=== PATIENT | male | born 1965 | race Caucasian/White ===

== ENCOUNTER 2017-05-10 08:09 | Day surgery (SDC) | payer MEDICARE, OTHER ==
[2017-05-10] VITALS (10 sets, daily range): BP systolic 96–124; BP diastolic 62–87
[~2017-05-10] VITALS: Ht 172.7 cm; Wt 81.6 kg
[~2017-05-10 08:09] MED LIST: ABILIFY10 MG ORAL; ACYCLOVIR400 MG ORAL; AMARYL1 MG ORAL; BYSTOLIC2.5 MG ORAL; Bacitracin 50000 Units Vial ONE; Bacitracin Oint 15gm Tube TOPIC ONE; METFORMIN HCL1000 M1 ORAL; NEXIUM40 MG ORAL; SIMVASTATIN20 MG ORAL; Surgicel 4in x 8in TOPIC ONE; TEMAZEPAM30 MG ORAL; TRILIPIX135 MG PO; VASCEPA1 GM PO; Vancomycin 1gm inj IVPB ONE; WELLBUTRIN XL150 MG ORAL; ZOCOR20 M1 ORAL
[2017-05-10] MEDS ORDERED: Vancomycin 1 GM in D5W 275 ML IVPB ONE (08:15)
--- NOTE | 2017-05-10 10:00 | Pre-Procedure Note/Attestation ---
Pre-Procedure Note/Attestation Complete Prior to Procedure Planned Procedure: not applicable Procedure Narrative: Removal and replacement of penile prosthesis Indications for Procedure Pre-Operative Diagnosis: ED Attestation I attest that I discussed the nature of the procedure; its benefits; risks and complications; and alternatives (and the risks and benefits of such alternatives ), prior to the procedure, with the patient (or the patient's legal goodwill representative). I attest that, if there was a reasonable possibility of needing a blood transfusion, the patient (or the patient's legal goodwill representative) was given the [facility] standardized written summary, pursuant to the Compa Stoney Blood Safety Act ([place] Health and Safety Code # 1645, as amended). I attest that I re-evaluated the patient just prior to the surgery and that there has been no change in the patient's H&P, except as documented below: Javed Haas MD May 10, 2017 10:00
[2017-05-10] MEDS ORDERED: Midazolam 2mg/2ml Inj ONE (12:00)
[2017-05-10] MEDS ORDERED: Propofol 10mg/ml 20ml IV ONE (12:00)
[2017-05-10] MEDS ORDERED: NS Irrig 1000ml ONE (12:00)
[2017-05-10] MEDS ORDERED: Lidocaine 1% MPF 10mg/ml 5ml ONE (12:00)
[2017-05-10] MEDS ORDERED: Ketorolac 30mg Inj ONE (12:00)
[2017-05-10] MEDS ORDERED: LR 1000ml ONE (12:00)
[2017-05-10] MEDS ORDERED: Sterile Water Irrig 1000ml IRRIG ONE (12:00)
[2017-05-10] MEDS ORDERED: fentaNYL 100 mcg/2 mL IV ONE (12:00)
--- NOTE | 2017-05-10 12:24 | Anethesia Preoperative Eval ---
Anesthesia Pre-op PMH/ROS General Date of Evaluation: May 10, 2017 Mallampati Score Class I : Soft palate, uvula, fauces, pillars visible Class II: Soft palate, uvula, fauces visible Class III: Soft palate, base of uvula visible Class IV: Only hard plate visible Allergies: Coded Allergies: SULFA (SULFONAMIDE ANTIBIOTICS) (Verified Allergy, Unknown, 05/10/17) Anesthesia Pre-op Phys. Exam Physician Exam Last Vital Signs Date Time Temp Pulse Resp B/P Pulse Ox O2 Delivery O2 Flow Rate FiO2 05/10/17 08:43 98.2 94 18 124/87 97 Room Air Doyle Pinto MD May 10, 2017 12:24
[2017-05-10] MEDS ORDERED: LR 1000ml 1,000 ML IVLG SCH (12:47)
--- NOTE | 2017-05-10 12:55 | Anethesia Preoperative Eval ---
Anesthesia Pre-op PMH/ROS General Date of Evaluation: May 10, 2017 Time of Evaluation: 12:19 Anesthesiologist: Blair ASA Score: ASA 3 Mallampati Score Class I : Soft palate, uvula, fauces, pillars visible Class II: Soft palate, uvula, fauces visible Class III: Soft palate, base of uvula visible Class IV: Only hard plate visible Mallampati Classification: Class II Surgeon: Waldo Diagnosis: Malfunctioning Penile Prosthesis Surgical Procedure: Revision/Replace Penile Prosthesis Anesthesia History: none Family History: no anesthesia problems Allergies: Coded Allergies: SULFA (SULFONAMIDE ANTIBIOTICS) (Verified Allergy, Unknown, 05/10/17) Medications: see eMAR Past Medical History Cardiovascular: Reports: HTN, other - HL Gastrointestinal/Genitourinary: Reports: GERD, other - Pancreatitis Endocrine: Reports: DM PSxH Narrative: Penile Prosthesis Anesthesia Pre-op Phys. Exam Physician Exam Last Vital Signs Date Time Temp Pulse Resp B/P Pulse Ox O2 Delivery O2 Flow Rate FiO2 05/10/17 08:43 98.2 94 18 124/87 97 Room Air Constitutional: NAD Neurologic: CN 2-12 intact Cardiovascular: RRR Respiratory: CTA Gastrointestinal: S/NT/ND Airway Exam Mallampati Score: Class II MO: full ROM: limited Teeth: missing, intact Anesthesia Pre-op A/P Risk Assessment & Plan Assessment: ASA 3 Plan: GA, BIS Status Change Before Surgery: No Pre-Antibiotics Dru Gram Vancomycin, 80 mg Gentamicin IV Given Within 1 Hr of Incision: Yes Time Given: 12:31 Doyle Pinto MD May 10, 2017 12:55
--- NOTE | 2017-05-10 12:57 | Immediate Post-Op Evaluation ---
Immediate Post-Op Evalulation Immediate Post-Op Evalulation Procedure: Revision/Replace Penile Prosthesis Date of Evaluation: May 10, 2017 Time of Evaluation: 14:07 IV Fluids: 800 LR Blood Products: 0 Estimated Blood Loss: 25 Urinary Output: 0 Blood Pressure Systolic: 96 Blood Pressure Diastolic: 65 Pulse Rate: 81 Respiratory Rate: 16 O2 Sat by Pulse Oximetry: 98 Temperature (Fahrenheit): 98.3 Pain Score (1-10): 2 Nausea: No Vomiting: No Complications 0 Patient Status: awake, reacts, patent, extubated, none Hydration Status: adequate Dru Gram Vancomycin, 80 mg Gentamicin IV Given Within 1 Hr of Incision: Yes Time Given: 12:41 Doyle Pinto MD May 10, 2017 12:57
[2017-05-10] MEDS ORDERED: Oxycodone/Acetaminophen 5-325 ORAL PRN (13:00)
[2017-05-10] MEDS ORDERED: Hydromorphone 0.5mg/0.5ml inj IVP PRN (13:00)
[2017-05-10] MEDS ORDERED: Norco 5mg/325mg tab ORAL PRN ×2 (13:00→13:45)
[2017-05-10] MEDS ORDERED: Metoclopramide 10mg/2ml Inj IVP PRN (13:00)
[2017-05-10] MEDS ORDERED: DiphenhydrAMINE 50mg/ml Inj IVP PRN (13:00)
[2017-05-10] MEDS ORDERED: Atropine Inj 1mg/10ml Syr IV PRN (13:00)
[2017-05-10] MEDS ORDERED: Meperidine 25mg/0.5ml Inj IV PRN (13:00)
[2017-05-10] MEDS ORDERED: Midazolam 2mg/2ml Inj IVP PRN (13:00)
[2017-05-10] MEDS ORDERED: Norco 7.5mg/325mg tab ORAL PRN (13:00)
[2017-05-10] MEDS ORDERED: LORazepam Inj 2mg/ml 1ml IV PRN (13:00)
[2017-05-10] MEDS ORDERED: Ketorolac 60mg Inj IV PRN (13:00)
[2017-05-10] MEDS ORDERED: fentaNYL 100 mcg/2 mL IV PRN (13:00)
[2017-05-10] MEDS ORDERED: Ketorolac 30mg Inj IV PRN (13:00)
[2017-05-10] MEDS ORDERED: Protamine Sulfate Inj ONE (13:01)
[2017-05-10] MEDS ORDERED: Hydrogen Peroxide 473ml Bottle TOPIC ONE (13:01)
[2017-05-10] MEDS ORDERED: Betadine 4oz Bottle TOPIC ONE (13:06)
[2017-05-10] MEDS ORDERED: Tylenol #3 tab (300mg/30mg) ORAL PRN (13:45)
[2017-05-10] MEDS ORDERED: HYDROmorphone 1mg/ml Carpuject SUBQ PRN (13:45)
[2017-05-10] MEDS ORDERED: D5 1/2NS 1,000 ML IV SCH (13:45)
--- NOTE | 2017-05-10 13:48 | Brief Operative Note ---
Immediate Post Operative Note Operative Note Pre-op Diagnosis: ED Procedure: removal of infected penile prosthesis Post-op Diagnosis: infected IPP Post-op Diagnosis: same as pre-op Surgeon: Maximino Haas Anesthesia: general Specimen: yes Complications: none Condition: stable Drains: none Implant(s) used?: No Javed Haas MD May 10, 2017 13:48
--- NOTE | 2017-05-10 15:43 | 48 Hour Post Anesthesia Eval ---
Post Anesthesia Evaluation Procedure: Revision/Replace Penile Prosthesis Date of Evaluation: May 10, 2017 Time of Evaluation: 15:07 Blood Pressure Systolic: 103 0: 70 Pulse Rate: 93 Respiratory Rate: 20 Temperature (Fahrenheit): 97.6 O2 Sat by Pulse Oximetry: 96 Airway: patent Nausea: No Vomiting: No Pain Intensity: 1 Hydration Status: adequate Cardiopulmonary Status: Stable Mental Status/LOC: patient returned to baseline Follow-up Care/Observations: 0 Post-Anesthesia Complications: 0 Follow-up care needed: ready to discharge Doyle Pinto MD May 10, 2017 15:43
--- NOTE | 2017-05-10 20:45 | Operative Note - Dictated ---
DATE OF OPERATION: 05/10/2017 PREOPERATIVE DIAGNOSIS: Nonfunctioning penile prosthesis. OPERATION: Removal of infected penile prosthesis with wound irrigation and closure. PREOPERATIVE DIAGNOSIS: Removal of infected penile prosthesis with wound irrigation and closure. SURGEON: Javed Haas M.D. ANESTHESIA: General. FINDINGS: Significant amount of white pus in all chambers of previously installed penile prosthesis. INDICATIONS FOR SURGERY: The patient had two penile prosthesis placement, both of them got infected and this one was clinically normal prosthesis, but malfunctioned in the last month or so and the patient was unable to achieve for normal erections. He was evaluated for surgery and pre-operated and understands the nature of the procedure and signed a consent. DESCRIPTION OF SURGERY: He was brought to the operating room, placed in the lithotomy position and prepped and draped in standard fashion. Under general anesthesia, penoscrotal incision was made and a Guad[place]ama catheter was placed into the urethra to prevent urethral trauma. After opening of the skin, old adhesions from previous prosthesis was dissected free and the space where the pump was located in the subscrotal area was entered. Copious amount of white pus was expressed from the chamber where the pump was located and sent for two type of cultures, anaerobic and aerobic and bacterial cultures. Dissection of the cylinders also showed the multiple cubic centimeters of pus was expressed as well as from the area of the reservoir. I made a decision not to implant another prosthesis due to the patient's diabetes and other potential complicating factors and the fact that this is the second infection. I decided the best approach would be to irrigate with three different types of irrigations, let him heal and then possibly bring him back where a sterile field will be established. First, all the chambers the three-piece prosthesis were removed including the reservoir and all three areas of penile corpora reservoir, capsule and pump was irrigated with three types of solutions, Betadine, then peroxide and then gentamicin antibiotics. After that, there was no evidence of residual pus. Wound was closed in three layers in 4-0 chromic suture for the skin, packing and dressing. Sponge count and instrument count was correct. Javed Haas M.D. DR: ZACH JOB#: [id number] CC:
== END 2017-05-10 15:25 | disposition home or self-care (01) ==
LOC: SUR 08:09
DX: T83.61XA Infection and inflammatory reaction due to implanted penile prosthesis, initial encounter (principal); Y83.8 Other surgical procedures as the cause of abnormal reaction of the patient, or of later complication, without mention of misadventure at the time of the procedure; Y92.009 Unspecified place in unspecified non-institutional (private) residence as the place of occurrence of the external cause; N52.9 Male erectile dysfunction, unspecified; E11.9 Type 2 diabetes mellitus without complications; M54.30 Sciatica, unspecified side; I10 Essential (primary) hypertension; E78.5 Hyperlipidemia, unspecified; G47.33 Obstructive sleep apnea (adult) (pediatric); F31.9 Bipolar disorder, unspecified; K21.9 Gastro-esophageal reflux disease without esophagitis; E78.1 Pure hyperglyceridemia; G89.4 Chronic pain syndrome; M54.10 Radiculopathy, site unspecified; K86.1 Other chronic pancreatitis; F17.210 Nicotine dependence, cigarettes, uncomplicated; Z88.2 Allergy status to sulfonamides
CPT/HCPCS: 82962; 87070; 87075; 87205; 94003; 94150; A4246; J2250; J2405

== ENCOUNTER → 2017-08-02 | Day surgery (SDC) | payer MEDICARE, OTHER ==
[~2017-08-02] VITALS: Ht 172.7 cm; Wt 78.9 kg
[2017-08-02] VITALS (9 sets, daily range): BP systolic 115–133; BP diastolic 76–92
[~2017-08-02] MED LIST changes: +ASPIR-LOW81 MG ORAL; +Betadine 4oz Bottle TOPIC ONE; +CLOBETASOL EMOL15 GM TP; +D5 1/2NS 1,000 ML IV SCH; +DiphenhydrAMINE 50mg/ml Inj IVP PRN; +Glycopyrrolate 0.2mg/ml 1ml Vial ONE; +HYDROmorphone 1mg/ml Carpuject SUBQ PRN; +Hydrogen Peroxide 473ml Bottle TOPIC ONE; +Hydromorphone 0.5mg/0.5ml inj IVP PRN; +INVOKANA PO; +Ketorolac 30mg Inj IV PRN; +Ketorolac 30mg Inj ONE; +LORazepam Inj 2mg/ml 1ml IV PRN; +LR 1000ml 1,000 ML IVLG SCH; +LR 1000ml ONE; +Lidocaine 1% MPF 10mg/ml 5ml ONE; +Metoclopramide 10mg/2ml Inj IVP PRN; +Midazolam 2mg/2ml Inj IVP PRN; +Midazolam 2mg/2ml Inj ONE; +NORCO 10-325 T1 EACH ORAL; +NS Irrig 1000ml ONE; +NeoSporin Gu Irrig 1ml Amp IRRIG ONE; +Neostigmine 1mg/ml 10ml Inj ONE; +Norco 5mg/325mg tab ORAL PRN; +Propofol 200mg/20ml IV ONE; +Sterile Water Irrig 1000ml IRRIG ONE; +Tylenol #3 tab (300mg/30mg) ORAL PRN; +Vancomycin 1 GM in D5W 275 ML IVPB ONE; +Vancomycin 1 GM in NS 275 ML IVPB ONE; +fentaNYL 100 mcg/2 mL IV PRN; +fentaNYL 250mcg/5ml ONE
--- NOTE | 2017-08-02 13:22 | Anethesia Preoperative Eval ---
Anesthesia Pre-op PMH/ROS General Date of Evaluation: Aug 02, 2017 Anesthesiologist: Kj ASA Score: ASA 3 Mallampati Score Class I : Soft palate, uvula, fauces, pillars visible Class II: Soft palate, uvula, fauces visible Class III: Soft palate, base of uvula visible Class IV: Only hard plate visible Mallampati Classification: Class II Surgeon: Waldo Diagnosis: Failure penile prosthesis Surgical Procedure: Penile implant replacement Anesthesia History: none Family History: no anesthesia problems Allergies: Coded Allergies: No Known Allergies (Unverified , 08/02/17) Medications: see eMAR Past Medical History Cardiovascular: Reports: HTN, other - HLD, Denies: CAD, [place], valve dz, arrhythmia Pulmonary: Denies: asthma, COPD, ROSARIO, other Gastrointestinal/Genitourinary: Reports: GERD, other - chronic pancreatitis, Denies: CRI, ESRD Neurologic/Psychiatric: Reports: CVA, other - bipolar, Denies: dementia, depression/anxiety, TIA Endocrine: Reports: DM, Denies: hypothyroidism, steroids, other HEENT: Denies: cataract (L), cataract (R), glaucoma, [place] (L), [place] (R), other Hematology/Immune: Denies: anemia, DVT, bleeding disorder, other Musculoskeletal/Integumentary: Denies: OA, RA, DJD, DDD, edema, other PSxH Narrative: penile implant Anesthesia Pre-op Phys. Exam Physician Exam Last Vital Signs Date Time Temp Pulse Resp B/P (MAP) Pulse Ox O2 Delivery O2 Flow Rate FiO2 08/02/17 11:15 99.5 98 18 126/88 95 Room Air Constitutional: NAD Cardiovascular: RRR Respiratory: CTA Airway Exam Mallampati Score: Class II MO: full ROM: full Anesthesia Pre-op A/P Labs see chart Studies Pre-op Studies: EKG - st Risk Assessment & Plan Assessment: ASA III Plan: GA Status Change Before Surgery: No Pre-Antibiotics Drug: Vanco 1g, gentamycin 80mg Given Within 1 Hr of Incision: RACHID Vallecillo M.D. Aug 02, 2017 13:22
--- NOTE | 2017-08-02 14:33 | Pre-Procedure Note/Attestation ---
Pre-Procedure Note/Attestation Complete Prior to Procedure Planned Procedure: not applicable Procedure Narrative: placement of IPP Indications for Procedure Pre-Operative Diagnosis: ED Attestation I attest that I discussed the nature of the procedure; its benefits; risks and complications; and alternatives (and the risks and benefits of such alternatives ), prior to the procedure, with the patient (or the patient's legal inbound customer service representative). I attest that, if there was a reasonable possibility of needing a blood transfusion, the patient (or the patient's legal inbound customer service representative) was given the [facility] standardized written summary, pursuant to the Compa Stoney Blood Safety Act ([place] Health and Safety Code # 1645, as amended). I attest that I re-evaluated the patient just prior to the surgery and that there has been no change in the patient's H&P, except as documented below: Javed Haas MD Aug 02, 2017 14:33
--- NOTE | 2017-08-02 14:34 | Brief Operative Note ---
Immediate Post Operative Note Operative Note Pre-op Diagnosis: ED Procedure: IPP implantation Post-op Diagnosis: same Post-op Diagnosis: same as pre-op Surgeon: Maximino Mccollum Anesthesia: general Specimen: none Complications: none Condition: stable Fluids: 500 Estimated Blood Loss: minimal Drains: none Implant(s) used?: Yes Javed Haas MD Aug 02, 2017 14:34
--- NOTE | 2017-08-02 15:20 | Immediate Post-Op Evaluation ---
Immediate Post-Op Evalulation Immediate Post-Op Evalulation Procedure: Revision penile prosthesis Date of Evaluation: Aug 02, 2017 Time of Evaluation: 17:04 IV Fluids: 1L Blood Products: 0 Estimated Blood Loss: 15 Urinary Output: 0 Blood Pressure Systolic: 115 Blood Pressure Diastolic: 76 Pulse Rate: 87 Respiratory Rate: 16 O2 Sat by Pulse Oximetry: 100 Temperature (Fahrenheit): 97.6 Pain Score (1-10): 0 Nausea: No Vomiting: No Complications 0 Patient Status: awake, reacts, patent, none Hydration Status: adequate Drug: Oikwb5m and gentamucyn 80mg Given Within 1 Hr of Incision: Yes Time Given: 15:00 RACHID GOMES M.D. Aug 02, 2017 15:20
--- NOTE | 2017-08-02 15:21 | 48 Hour Post Anesthesia Eval ---
Post Anesthesia Evaluation Procedure: Revision penile prosthesis Date of Evaluation: Aug 02, 2017 Airway: patent Nausea: No Vomiting: No Pain Intensity: 0 Hydration Status: adequate Cardiopulmonary Status: at baseline Mental Status/LOC: patient returned to baseline Post-Anesthesia Complications: 0 Follow-up care needed: N/A - further care as per primary team RACHID GOMES M.D. Aug 02, 2017 15:21
--- NOTE | 2017-08-08 07:15 | Operative Note - Dictated ---
DATE OF OPERATION: 08/02/2017 PREOPERATIVE DIAGNOSIS: Infected penile prosthesis. POSTOPERATIVE DIAGNOSIS: Infected penile prosthesis. OPERATION: Revision of the infected penile prothesis sites, irrigation and placement of semi-rigid penile prosthesis. SURGEON: Javed Haas M.D. ANESTHESIA: General. FINDINGS: Obstructed corpora and infiltrative changes at the site of the old pump. INDICATION FOR SURGERY: The patient had 2 times infected penile prosthesis that he was wearing and had to be removed. He underwent massive antibiotic treatment for second prosthesis removal and copious irrigations. Everything resolved. He was doing well. The wounds healed well and the patient wanted to proceed with the third prosthesis infiltration. I spent quite a bit of time discouraging him from doing it, but his life and social connections are depending on his performances. I explained to him the treatment options, very high risk of failure, and high risk of infection. He understands the risks of the procedure and side effects. DESCRIPTION OF PROCEDURE: He was brought to the operating room, placed in supine position, prepped and draped in standard fashion. Penoscrotal incision was made and the corpora was mobilized from surrounding adhesions on both sides of the urethra. Urethra was carefully preserved. There was a lot of scarring with some residual infection left in the pocket of previous penile prosthesis pump, which was excised using sharp and blunt dissection, sent for pathologic examination. Corpora was then opened using sharp and blunt dissection. Corpora was dilated to 14-Urdu Hegar, and semi-rigid prosthesis 18 cm in length was placed and left indwelling. The patient tolerated the procedure well. The wound and corpora was closed in multiple layers. A subcuticular closure for the skin dressing, sponge count, and instrument count was correct. Javed Haas M.D. DR: STEFANO JOB#: [id number] CC: MALAIKA
== END | disposition home or self-care (01) ==
LOC: SUR 10:43
DX: T83.61XA Infection and inflammatory reaction due to implanted penile prosthesis, initial encounter (principal); N52.9 Male erectile dysfunction, unspecified; I10 Essential (primary) hypertension; K21.9 Gastro-esophageal reflux disease without esophagitis; E11.9 Type 2 diabetes mellitus without complications; K86.1 Other chronic pancreatitis; G47.33 Obstructive sleep apnea (adult) (pediatric); F17.200 Nicotine dependence, unspecified, uncomplicated; M54.17 Radiculopathy, lumbosacral region; M54.30 Sciatica, unspecified side; Z88.2 Allergy status to sulfonamides; Z86.73 Personal history of transient ischemic attack (TIA), and cerebral infarction without residual deficits; X58.XXXA Exposure to other specified factors, initial encounter; L72.8 Other follicular cysts of the skin and subcutaneous tissue; Y92.9 Unspecified place or not applicable; F31.81 Bipolar II disorder; G89.4 Chronic pain syndrome; Z79.84 Long term (current) use of oral hypoglycemic drugs; Z79.82 Long term (current) use of aspirin
CPT/HCPCS: 54416; 82962; C2622; J1580; J1885; J2250; J2704; J2710; J2765; J3010; J3370; J7050; J7120; 94003; 94150; A4246

== ENCOUNTER 2017-08-23 11:05 | Inpatient (IN) | payer MEDICARE, OTHER ==
[~2017-08-23] VITALS: Ht 172.7 cm; Wt 81.6 kg
[2017-08-23] VITALS (12 sets, daily range): BP systolic 101–144; BP diastolic 60–100
--- NOTE | 2017-08-23 06:34 | Anethesia Preoperative Eval ---
Anesthesia Pre-op PMH/ROS General Date of Evaluation: Aug 23, 2017 Time of Evaluation: 06:32 Anesthesiologist: emily ASA Score: ASA 3 Mallampati Score Class I : Soft palate, uvula, fauces, pillars visible Class II: Soft palate, uvula, fauces visible Class III: Soft palate, base of uvula visible Class IV: Only hard plate visible Mallampati Classification: Class II Surgeon: shelley Diagnosis: infected penile prosthesis Surgical Procedure: removal penile prosthesis Allergies: Coded Allergies: No Known Allergies (Unverified , 08/02/17) Past Medical History Cardiovascular: Reports: HTN, arrhythmia Pulmonary: Reports: ROSARIO Gastrointestinal/Genitourinary: Reports: GERD Neurologic/Psychiatric: Reports: CVA, other - biploar disorder Anesthesia Pre-op A/P Risk Assessment & Plan Assessment: asa3 Plan: RAZA Ha Aug 23, 2017 06:34
[~2017-08-23 11:05] MED LIST changes: -Bacitracin 50000 Units Vial ONE; -Bacitracin Oint 15gm Tube TOPIC ONE; -Betadine 4oz Bottle TOPIC ONE; -D5 1/2NS 1,000 ML IV SCH; -DiphenhydrAMINE 50mg/ml Inj IVP PRN; -Glycopyrrolate 0.2mg/ml 1ml Vial ONE; -HYDROmorphone 1mg/ml Carpuject SUBQ PRN; -Hydrogen Peroxide 473ml Bottle TOPIC ONE; -Hydromorphone 0.5mg/0.5ml inj IVP PRN; -Ketorolac 30mg Inj IV PRN; -Ketorolac 30mg Inj ONE; -LORazepam Inj 2mg/ml 1ml IV PRN; -LR 1000ml 1,000 ML IVLG SCH; -LR 1000ml ONE; -Lidocaine 1% MPF 10mg/ml 5ml ONE; -Metoclopramide 10mg/2ml Inj IVP PRN; -Midazolam 2mg/2ml Inj IVP PRN; -Midazolam 2mg/2ml Inj ONE; -NS Irrig 1000ml ONE; -NeoSporin Gu Irrig 1ml Amp IRRIG ONE; -Neostigmine 1mg/ml 10ml Inj ONE; -Norco 5mg/325mg tab ORAL PRN; -Propofol 200mg/20ml IV ONE; -Sterile Water Irrig 1000ml IRRIG ONE; -Surgicel 4in x 8in TOPIC ONE; -Tylenol #3 tab (300mg/30mg) ORAL PRN; -Vancomycin 1 GM in NS 275 ML IVPB ONE; -Vancomycin 1gm inj IVPB ONE; -fentaNYL 100 mcg/2 mL IV PRN; -fentaNYL 250mcg/5ml ONE
--- NOTE | 2017-08-23 12:18 | Pre-Procedure Note/Attestation ---
Pre-Procedure Note/Attestation Complete Prior to Procedure Planned Procedure: not applicable Procedure Narrative: removal of IPP Indications for Procedure Pre-Operative Diagnosis: infected ipp Attestation I attest that I discussed the nature of the procedure; its benefits; risks and complications; and alternatives (and the risks and benefits of such alternatives ), prior to the procedure, with the patient (or the patient's legal account retention representative). I attest that, if there was a reasonable possibility of needing a blood transfusion, the patient (or the patient's legal account retention representative) was given the [facility] standardized written summary, pursuant to the Compa Stoney Blood Safety Act ([place] Health and Safety Code # 1645, as amended). I attest that I re-evaluated the patient just prior to the surgery and that there has been no change in the patient's H&P, except as documented below: Javed Haas MD Aug 23, 2017 12:18
--- NOTE | 2017-08-23 12:20 | Brief Operative Note ---
Immediate Post Operative Note Operative Note Pre-op Diagnosis: infected ipp Procedure: removal of ipp Post-op Diagnosis: same Post-op Diagnosis: same as pre-op Surgeon: Maximino Haas Anesthesia: general Specimen: yes Complications: none Condition: stable Fluids: 500 Estimated Blood Loss: minimal Implant(s) used?: No Javed Haas MD Aug 23, 2017 12:20
[2017-08-23] MEDS ORDERED: NeoSporin Gu Irrig 1ml Amp IRRIG ONE (12:30)
[2017-08-23] MEDS ORDERED: Vancomycin 1gm inj IVPB ONE (12:30)
[2017-08-23] MEDS ORDERED: Norco 5mg/325mg tab ORAL PRN (12:30)
[2017-08-23] MEDS ORDERED: Betadine 4oz Bottle TOPIC ONE (12:30)
[2017-08-23] MEDS ORDERED: Ketorolac 30mg Inj IV PRN (12:30)
[2017-08-23] MEDS ORDERED: Bacitracin 50000 Units Vial ONE (12:30)
[2017-08-23] MEDS ORDERED: Hydrogen Peroxide 473ml Bottle TOPIC ONE (12:30)
[2017-08-23] MEDS ORDERED: Propofol 200mg/20ml IV ONE (12:45)
[2017-08-23] MEDS ORDERED: LR 1000ml ONE (12:45)
[2017-08-23] MEDS ORDERED: Lidocaine 1% MPF 10mg/ml 5ml ONE (12:45)
[2017-08-23] MEDS ORDERED: Ketorolac 30mg Inj ONE (12:45)
[2017-08-23] MEDS ORDERED: Sterile Water Irrig 1000ml IRRIG ONE (12:45)
[2017-08-23] MEDS ORDERED: fentaNYL 100 mcg/2 mL IV ONE (12:45)
[2017-08-23] MEDS ORDERED: NS Irrig 1000ml ONE (12:45)
[2017-08-23] MEDS ORDERED: Midazolam 2mg/2ml Inj ONE (12:45)
--- NOTE | 2017-08-23 13:30 | Anethesia Preoperative Eval ---
Anesthesia Pre-op PMH/ROS General Date of Evaluation: Aug 23, 2017 Anesthesiologist: Kj ASA Score: ASA 3 Mallampati Score Class I : Soft palate, uvula, fauces, pillars visible Class II: Soft palate, uvula, fauces visible Class III: Soft palate, base of uvula visible Class IV: Only hard plate visible Mallampati Classification: Class II Surgeon: Waldo Diagnosis: Infected penile prosthesis Surgical Procedure: Removal of infected penile prostehsis Anesthesia History: none Family History: no anesthesia problems Allergies: Coded Allergies: No Known Allergies (Unverified , 08/02/17) Medications: see eMAR Past Medical History Cardiovascular: Reports: HTN, other - HLD, baseline tachycardic, Denies: CAD, [place], valve dz, arrhythmia Pulmonary: Reports: ROSARIO, Denies: asthma, COPD, other Gastrointestinal/Genitourinary: Reports: GERD, Denies: CRI, ESRD, other Neurologic/Psychiatric: Reports: other - bipolar, Denies: dementia, CVA, depression/anxiety, TIA Endocrine: Reports: DM, Denies: hypothyroidism, steroids, other HEENT: Denies: cataract (L), cataract (R), glaucoma, [place] (L), [place] (R), other Hematology/Immune: Denies: anemia, DVT, bleeding disorder, other Musculoskeletal/Integumentary: Denies: OA, RA, DJD, DDD, edema, other PSxH Narrative: Multiple penile suyrgeries Anesthesia Pre-op Phys. Exam Physician Exam Last Vital Signs Date Time Temp Pulse Resp B/P (MAP) Pulse Ox O2 Delivery O2 Flow Rate FiO2 08/23/17 11:44 98.9 101 18 126/88 94 Room Air Constitutional: NAD Cardiovascular: other - tachy Respiratory: other - mild bilateral crackles Airway Exam Mallampati Score: Class III Anesthesia Pre-op A/P Labs see chart Studies Pre-op Studies: EKG - ST Risk Assessment & Plan Assessment: ASA III Plan: GA Status Change Before Surgery: No Pre-Antibiotics Drug: Vancomycin 1g and gentamycin 80mg Given Within 1 Hr of Incision: Yes RACHID GOMES M.D. Aug 23, 2017 13:30
--- NOTE | 2017-08-23 13:32 | Immediate Post-Op Evaluation ---
Immediate Post-Op Evalulation Immediate Post-Op Evalulation Procedure: Removal of infected penile prosthesis Date of Evaluation: Aug 23, 2017 IV Fluids: 600 Blood Products: 0 Estimated Blood Loss: min Urinary Output: 0 Blood Pressure Systolic: 118 Blood Pressure Diastolic: 79 Pulse Rate: 98 Respiratory Rate: 19 O2 Sat by Pulse Oximetry: 99 Temperature (Fahrenheit): 98 Pain Score (1-10): 0 Nausea: No Vomiting: No Complications 0 Patient Status: awake, reacts, patent, none Hydration Status: adequate Drug: Vancomycin 1g and gentamycin 80mg Given Within 1 Hr of Incision: Yes Time Given: 12:45 RACHID GOMES M.D. Aug 23, 2017 13:32
[2017-08-23] MEDS ORDERED: LR 1000ml 1,000 ML IVLG SCH (13:33)
--- NOTE | 2017-08-23 13:33 | 48 Hour Post Anesthesia Eval ---
Post Anesthesia Evaluation Procedure: Removal of infected penile prosthesis Date of Evaluation: Aug 23, 2017 Airway: patent Nausea: No Vomiting: No Pain Intensity: 0 Hydration Status: adequate Cardiopulmonary Status: at baseline Mental Status/LOC: patient returned to baseline Post-Anesthesia Complications: 0 Follow-up care needed: ready to discharge RACHID GOMES M.D. Aug 23, 2017 13:33
[2017-08-23] MEDS ORDERED: LORazepam Inj 2mg/ml 1ml IV PRN (13:45)
[2017-08-23] MEDS ORDERED: DiphenhydrAMINE 50mg/ml Inj IVP PRN (13:45)
[2017-08-23] MEDS ORDERED: Midazolam 2mg/2ml Inj IVP PRN (13:45)
[2017-08-23] MEDS ORDERED: fentaNYL 100 mcg/2 mL IV PRN (13:45)
[2017-08-23] MEDS: Hydromorphone 0.5mg/0.5ml inj IVP PRN ×3 (14:13→17:49)
[2017-08-23 15:55] LABS: BASOPHILS % (AUTO) 0.8 % (0.0-2.0); CALCIUM 9.1 mg/dL (8.6-10.2); CREATININE 1.3 mg/dL (0.7-1.2); EOSINOPHILS % (AUTO) 1.4 % (0.0-3.0); GLOMERULAR FILTRATION RATE 58.7 mL/min (>60); LYMPHOCYTES % (AUTO) 24.5 % (20.0-45.0); MEAN CORPUSCULAR HEMOGLOBIN 28.7 PG (27.0-31.0); MEAN CORPUSCULAR HGB CONC 32.2 G/DL (32.0-36.0); MEAN CORPUSCULAR VOLUME 89 FL (80-99); MEAN PLATELET VOLUME 6.2 FL (6.5-10.1); NEUTROPHILS % (AUTO) 64.4 % (45.0-75.0); PLATELET COUNT 318 K/UL (150-450); POTASSIUM 5.1 mEQ/L (3.4-4.9); RED CELL DISTRIBUTION WIDTH 10.9 % (11.6-14.8); WHITE BLOOD COUNT 10.5 K/UL (4.8-10.8)
--- NOTE | 2017-08-23 16:07 | History and Physical ---
History of Present Illness General Date patient seen: Aug 23, 2017 Present Illness HPI 51 year old male with hx of HTN, pancreatitis, and diabetic and prior infected penile prosthesix x2 presents for removal of prosthesis Per patient he had a new prosthesis placed about 2-3 weeks ago. He noticed shortly after pain, redness and swelling. He was placed on IV Vanco and Gentamycin, which he received for 1 week without significant improvement. Allergies: Coded Allergies: No Known Allergies (Unverified , 08/02/17) Medication History Scheduled Aripiprazole* (Abilify*), 10 MG ORAL DAILY, (Reported) Aspirin* (Aspir-Low*), 81 MG ORAL DAILY, (Reported) Bupropion Hcl* (Wellbutrin Xl*), 150 MG ORAL DAILY, (Reported) Ceftriaxone Sodium (Ceftriaxone), 1 GM IVPB Q24H, (Reported) Clobetasol Propionate/Emoll (Clobetasol Emollient 0.05% Crm), 15 GM TP BID, ( Reported) Esomeprazole Magnesium (Nexium), 40 MG ORAL BID, (Reported) Fenofibric Acid (Choline) (Trilipix), 135 MG PO DAILY, (Reported) Glimepiride* (Amaryl*), 2 MG ORAL BID, (Reported) Icosapent Ethyl (Vascepa), 1 GM PO DAILY, (Reported) Metformin Hcl* (Metformin Hcl*), 1,000 MG ORAL BID, (Reported) Nebivolol Hcl* (Bystolic*), 5 MG ORAL DAILY, (Reported) Vancomycin Hcl (Vancomycin), 1 GM IVPB Q12HR, (Reported) [Invokana], 1 TAB PO DAILY, (Reported) Scheduled PRN Hydrocodone Bit/Acetaminophen 10-325* ([place] 10-325*), 1 TAB ORAL Q6H PRN for For Pain, (Reported) Temazepam* (Temazepam*), 30 MG ORAL BEDTIME PRN for Insomnia, (Reported) Miscellaneous Medications Ceftriaxone Sod (Rocephin), 1 GM IM, (Reported) Patient History Healthcare decision maker EVANS GUARDADO=-BROTHER Resuscitation status Full Code Advanced Directive on File Past Medical/Surgical History Past Medical/Surgical History: (1) Infection of prosthesis Review of Systems All Other Systems: negative except mentioned in HPI Physical Exam General Appearance: WD/WN, no apparent distress Lines, tubes and drains: peripheral, central line HEENT: normocephalic, atraumatic Neck: non-tender, normal alignment Respiratory/Chest: chest wall non-tender, lungs clear Abdomen: normal bowel sounds, non tender Genitourinary/Rectal: normal genital exam, normal rectal exam Skin Exam: normal pigmentation Last 24 Hour Vital Signs Date Time Temp Pulse Resp B/P (MAP) Pulse Ox O2 Delivery O2 Flow Rate FiO2 08/23/17 15:11 97.6 88 22 133/90 99 Simple Mask 8.0 08/23/17 15:03 97.6 08/23/17 15:00 97.6 88 22 131/86 99 Simple Mask 8.0 08/23/17 14:38 88 22 133/99 99 Simple Mask 8.0 08/23/17 14:30 90 22 135/88 99 Simple Mask 8.0 08/23/17 14:13 99 22 143/89 99 Simple Mask 8.0 08/23/17 14:05 101 22 136/100 99 Simple Mask 8.0 08/23/17 14:00 105 22 144/97 99 Simple Mask 8.0 08/23/17 13:55 97.7 99 22 131/99 99 Simple Mask 8.0 08/23/17 11:44 98.9 101 18 126/88 94 Room Air Intake and Output 08/23/17 08/24/17 19:00 07:00 Intake Total 900 ml Balance 900 ml Intake IV Total 900 ml # Voids 1 Laboratory Tests Test 08/23/17 15:38 White Blood Count 10.5 K/UL (4.8-10.8) Red Blood Count 5.00 M/UL (4.70-6.10) Hemoglobin 14.4 G/DL (14.2-18.0) Hematocrit 44.6 % (42.0-52.0) Mean Corpuscular Volume 89 FL (80-99) Mean Corpuscular Hemoglobin 28.7 PG (27.0-31.0) Mean Corpuscular Hemoglobin Concent 32.2 G/DL (32.0-36.0) Red Cell Distribution Width 10.9 % (11.6-14.8) L Platelet Count 318 K/UL (150-450) Mean Platelet Volume 6.2 FL (6.5-10.1) L Neutrophils (%) (Auto) 64.4 % (45.0-75.0) Lymphocytes (%) (Auto) 24.5 % (20.0-45.0) Monocytes (%) (Auto) 9.0 % (1.0-10.0) Eosinophils (%) (Auto) 1.4 % (0.0-3.0) Basophils (%) (Auto) 0.8 % (0.0-2.0) Sodium Level 138 mEQ/L (135-145) Potassium Level 5.1 mEQ/L (3.4-4.9) H Chloride Level 100 mEQ/L (98-107) Carbon Dioxide Level 27 mEQ/L (20-30) Anion Gap 11 (5-15) Blood Urea Nitrogen 27 mg/dL (7-23) H Creatinine 1.3 mg/dL (0.7-1.2) H Estimat Glomerular Filtration Rate 58.7 mL/min (>60) Glucose Level 135 mg/dL (74-106) H Calcium Level 9.1 mg/dL (8.6-10.2) Height (Feet): 5 Height (Inches): 8.00 Weight (Pounds): 180 Medications Current Medications Medications (Trade) Dose Ordered Sig/Keegan Route PRN Reason Start Time Stop Time Status Last Admin Dose Admin Acetaminophen (Tylenol) 650 mg Q4H PRN ORAL FEVER 08/23/17 12:30 09/22/17 12:29 UNV Acetaminophen (Tylenol) 650 mg Q4H PRN ORAL Mild Pain (Pain Scale 1-3) 08/23/17 13:45 08/23/17 18:00 Acetaminophen (Tylenol) 650 mg Q4H PRN ORAL fever 08/23/17 16:15 09/22/17 16:14 UNV Acetaminophen (Tylenol) 650 mg Q6H PRN ORAL Mild Pain (Pain Scale 1-3) 08/23/17 12:30 09/22/17 12:29 UNV Acetaminophen/ Hydrocodone Bitart ([place] 5/325) 1 tab Q4H PRN ORAL Moderate Pain (Pain Scale 4-6) 08/23/17 12:30 08/30/17 12:29 UNV Albuterol/ Ipratropium (DuoNeb 0.5-3(2.5)mg/3ml) 3 ml EVERY 4 HOURS PRN HHN Shortness of Breath 08/23/17 16:15 08/28/17 16:14 UNV Aripiprazole (Abilify) 10 mg DAILY ORAL 08/24/17 09:00 09/23/17 08:59 UNV Bupropion HCl (Wellbutrin XL) 150 mg DAILY ORAL 08/24/17 09:00 09/23/17 08:59 UNV Cefepime HCl 2 gm/ Dextrose 110 ml @ 220 mls/hr EVERY 12 HOURS IV 08/23/17 21:00 08/30/17 20:59 UNV Dextrose (Dextrose 50%) STAT PRN IV Hypoglycemia 08/23/17 16:15 09/22/17 16:14 UNV Dextrose/ Electrolytes 1,000 ml @ 100 mls/hr Q10H IV 08/23/17 12:20 09/22/17 12:19 UNV Diphenhydramine HCl (Benadryl) 25 mg Q15M PRN IVP Itching 08/23/17 13:45 08/23/17 18:00 Docusate Sodium (Colace) 100 mg TWICE A DAY ORAL 08/23/17 18:00 09/22/17 17:59 UNV Fentanyl Citrate (Sublimaze 100 mcg/2 mL) 25 mcg Q10M PRN IV Moderate Pain (Pain Scale 4-6) 08/23/17 13:45 08/23/17 18:00 Glimepiride (Amaryl) 2 mg BID ORAL 08/23/17 18:00 09/22/17 17:59 UNV Hydralazine HCl (Apresoline) 5 mg Q30M PRN IV SBP>160 OR___/DBP>90 OR___ 08/23/17 13:45 08/23/17 18:00 Hydromorphone HCl (Dilaudid) 0.5 mg Q15M PRN IVP Severe Pain (Pain Scale 7-10) 08/23/17 13:45 08/23/17 18:00 08/23/17 14:30 Hydromorphone HCl (Dilaudid) 1 mg Q3H PRN IVP pain score 4-6 08/23/17 12:30 08/30/17 12:29 UNV Insulin Aspart (NovoLOG) BEFORE MEALS AND HS SUBQ 08/23/17 16:30 11/3/17 16:29 UNV Ketorolac Tromethamine (Toradol 30mg) 15 mg Q6H PRN IV For Pain 08/23/17 12:30 08/28/17 12:29 UNV Lorazepam (Ativan 2mg/ml 1ml) 1 mg Q15M PRN IV For Anxiety 08/23/17 13:45 08/23/17 18:00 Midazolam HCl (Versed 2mg/2ml vial) 1 mg Q15M PRN IVP For Anxiety 08/23/17 13:45 08/23/17 18:00 Morphine Sulfate (Morphine Sulfate) 2 mg EVERY 4 HOURS PRN IVP Moderate Pain (Pain Scale 4-6) 08/23/17 16:15 08/30/17 16:14 UNV Nebivolol (Bystolic) 5 mg DAILY ORAL 08/24/17 09:00 09/23/17 08:59 UNV Nitroglycerin (Ntg) 0.4 mg Every 5 Minutes PRN SL Prn Chest Pain 08/23/17 16:15 09/22/17 16:14 UNV Ondansetron HCl (Zofran) 4 mg Q1H PRN IVP Nausea & Vomiting 08/23/17 13:45 08/23/17 18:00 Ondansetron HCl (Zofran) 4 mg Q6H PRN IVP Nausea & Vomiting 08/23/17 16:15 09/22/17 16:14 UNV Polyethylene Glycol (Miralax) 17 gm DAILYPRN PRN ORAL Constipation 08/23/17 16:15 09/22/17 16:14 UNV Temazepam (Restoril) 7.5 mg DAILYPRN PRN ORAL Insomnia 08/23/17 12:30 08/30/17 12:29 UNV Temazepam (Restoril) 15 mg HSPRN PRN ORAL Insomnia 08/23/17 16:15 08/30/17 16:14 UNV Vancomycin HCl 1 gm/Dextrose 275 ml @ 183.3 mls/ hr Q24H IV 08/24/17 00:30 08/29/17 00:29 UNV Assessment/Plan Problem List: (1) Infection of prosthesis ICD Codes: T85.79XA - Infection and inflammatory reaction due to other internal prosthetic devices, implants and grafts, initial encounter SNOMED: [id number] Assessment/Plan post op care keep spears Iv abx wound care pain management DRE JAMESON Aug 23, 2017 16:07
[2017-08-23] MEDS ORDERED: Nitroglycerin Subl 0.4mg tab SL PRN (16:15)
[2017-08-23] MEDS ORDERED: Morphine Sulfate 2mg/ml Inj IVP PRN (16:15)
[2017-08-23] MEDS ORDERED: Miralax 17gm pkt ORAL PRN (16:15)
[2017-08-23] MEDS ORDERED: Albuterol/Ipratropium 3ml neb HHN PRN (16:15)
[2017-08-23] MEDS: Glimepiride 1mg tab ORAL SCH (17:26)
[2017-08-23] MEDS: Docusate 100mg cap ORAL SCH (17:26)
[2017-08-23] MEDS ORDERED: D5 1/2NS w/KCl 20mEq 1,000 ML IV SCH (17:30)
[2017-08-23] MEDS: NovoLOG Insulin Flexpen SUBQ SCH ×2 (17:38→21:33)
[2017-08-23] MEDS: D5 1/2NS 1,000 ML IV SCH (17:40)
--- NOTE | 2017-08-23 18:05 | Consultation ---
History of Present Illness General Date patient seen: Aug 24, 2017 Time patient seen: 10:56 Chief Complaint: penile pain, swelling Reason for Consultation: infected penile prosthesis Present Illness HPI 51 y/o M with hx of HTN, H LD, GERD, pancreatitis, and diabetic and prior infected penile prosthesix x2 (last one per patient on 2014) presents to ED for infected penile prosthesis. Patient had revision of prosthesis on April 2017 (per review of records at EMR, although limited records available). Per patient he had a new prosthesis placed about 2-3 weeks ago. He noticed shortly after pain, redness and swelling. He was placed on IV Vanco and Gentamycin by Dr Haas which he received for 1 week without significant improvement. Denies f/c, n/v/d, cough, SOB, general malaise. He is s/p removal of prosthesis on 08/23; received Intra op Vanco and Gentamicin. ? cx sent from prosthesis; not apparent cultures were sent per orders. afebrile, no leukocytosis For discharge today. Allergies: Coded Allergies: No Known Allergies (Unverified , 08/02/17) Medication History Scheduled Aripiprazole* (Abilify*), 10 MG ORAL DAILY, (Reported) Aspirin* (Aspir-Low*), 81 MG ORAL DAILY, (Reported) Bupropion Hcl* (Wellbutrin Xl*), 150 MG ORAL DAILY, (Reported) Clobetasol Propionate/Emoll (Clobetasol Emollient 0.05% Crm), 15 GM TP BID, ( Reported) Esomeprazole Magnesium (Nexium), 40 MG ORAL BID, (Reported) Fenofibric Acid (Choline) (Trilipix), 135 MG PO DAILY, (Reported) Glimepiride* (Amaryl*), 2 MG ORAL BID, (Reported) Icosapent Ethyl (Vascepa), 1 GM PO DAILY, (Reported) Metformin Hcl* (Metformin Hcl*), 1,000 MG ORAL BID, (Reported) Nebivolol Hcl* (Bystolic*), 5 MG ORAL DAILY, (Reported) [Invokana], 1 TAB PO DAILY, (Reported) Scheduled PRN Hydrocodone Bit/Acetaminophen 10-325* ([place] 10-325*), 1 TAB ORAL Q6H PRN for For Pain, (Reported) Temazepam* (Temazepam*), 30 MG ORAL BEDTIME PRN for Insomnia, (Reported) Patient History Healthcare decision maker EVANS GUARDADO=-BROTHER Resuscitation status Full Code Advanced Directive on File Patient History Narrative PMHx as above Family history: non pertienent from ID SHX: single 1ppd no alcohol Review of Systems All Other Systems: negative except mentioned in HPI Physical Exam General Appearance: WD/WN, no apparent distress HEENT: normocephalic, atraumatic, EOMI Neck: supple Cardiovascular/Chest: normal rate, regular rhythm, no gallop/murmur Abdomen: normal bowel sounds, non tender, soft Extremities: non-tender, no edema Skin Exam: warm/dry Physical Exam Narrative Genital: Swollen testicle and penis shaft with surgical incision; spears in place Last 24 Hour Vital Signs Date Time Temp Pulse Resp B/P (MAP) Pulse Ox O2 Delivery O2 Flow Rate FiO2 08/23/17 15:11 97.6 88 22 133/90 99 Simple Mask 8.0 08/23/17 15:03 97.6 08/23/17 15:00 97.6 88 22 131/86 99 Simple Mask 8.0 08/23/17 14:38 88 22 133/99 99 Simple Mask 8.0 08/23/17 14:30 90 22 135/88 99 Simple Mask 8.0 08/23/17 14:13 99 22 143/89 99 Simple Mask 8.0 08/23/17 14:05 101 22 136/100 99 Simple Mask 8.0 08/23/17 14:00 105 22 144/97 99 Simple Mask 8.0 08/23/17 13:55 97.7 99 22 131/99 99 Simple Mask 8.0 08/23/17 11:44 98.9 101 18 126/88 94 Room Air Intake and Output 08/23/17 08/24/17 19:00 07:00 Intake Total 900 ml Balance 900 ml Intake IV Total 900 ml # Voids 1 Laboratory Tests Test 08/23/17 15:38 White Blood Count 10.5 K/UL (4.8-10.8) Red Blood Count 5.00 M/UL (4.70-6.10) Hemoglobin 14.4 G/DL (14.2-18.0) Hematocrit 44.6 % (42.0-52.0) Mean Corpuscular Volume 89 FL (80-99) Mean Corpuscular Hemoglobin 28.7 PG (27.0-31.0) Mean Corpuscular Hemoglobin Concent 32.2 G/DL (32.0-36.0) Red Cell Distribution Width 10.9 % (11.6-14.8) L Platelet Count 318 K/UL (150-450) Mean Platelet Volume 6.2 FL (6.5-10.1) L Neutrophils (%) (Auto) 64.4 % (45.0-75.0) Lymphocytes (%) (Auto) 24.5 % (20.0-45.0) Monocytes (%) (Auto) 9.0 % (1.0-10.0) Eosinophils (%) (Auto) 1.4 % (0.0-3.0) Basophils (%) (Auto) 0.8 % (0.0-2.0) Sodium Level 138 mEQ/L (135-145) Potassium Level 5.1 mEQ/L (3.4-4.9) H Chloride Level 100 mEQ/L (98-107) Carbon Dioxide Level 27 mEQ/L (20-30) Anion Gap 11 (5-15) Blood Urea Nitrogen 27 mg/dL (7-23) H Creatinine 1.3 mg/dL (0.7-1.2) H Estimat Glomerular Filtration Rate 58.7 mL/min (>60) Glucose Level 135 mg/dL (74-106) H Calcium Level 9.1 mg/dL (8.6-10.2) Height (Feet): 5 Height (Inches): 8.00 Weight (Pounds): 180 Medications Current Medications Medications (Trade) Dose Ordered Sig/Keegan Route PRN Reason Start Time Stop Time Status Last Admin Dose Admin Acetaminophen (Tylenol) 650 mg Q4H PRN ORAL FEVER 08/23/17 12:30 09/22/17 12:29 Acetaminophen (Tylenol) 650 mg Q6H PRN ORAL Mild Pain (Pain Scale 1-3) 08/23/17 12:30 09/22/17 12:29 Acetaminophen/ Hydrocodone Bitart ([place] 5/325) 1 tab Q4H PRN ORAL Moderate Pain (Pain Scale 4-6) 08/23/17 12:30 08/30/17 12:29 Albuterol/ Ipratropium (DuoNeb 0.5-3(2.5)mg/3ml) 3 ml Q4H PRN HHN Shortness of Breath 08/23/17 16:15 08/28/17 16:14 Aripiprazole (Abilify) 10 mg DAILY ORAL 08/24/17 09:00 09/23/17 08:59 Bupropion HCl (Wellbutrin XL) 150 mg DAILY ORAL 08/24/17 09:00 09/23/17 08:59 Cefepime HCl 2 gm/ Dextrose 110 ml @ 220 mls/hr EVERY 12 HOURS IV 08/23/17 21:00 08/30/17 20:59 UNV Dextrose (Dextrose 50%) STAT PRN IV Hypoglycemia 08/23/17 16:15 09/22/17 16:14 Dextrose/Sodium Chloride 1,000 ml @ 100 mls/hr Q10H IV 08/23/17 18:00 09/22/17 17:59 08/23/17 17:40 Docusate Sodium (Colace) 100 mg TWICE A DAY ORAL 08/23/17 18:00 09/22/17 17:59 08/23/17 17:26 Gentamicin Sulfate 400 mg/ Sodium Chloride 120 ml @ 120 mls/hr ONCE ONCE IVPB 08/23/17 21:00 08/23/17 21:59 Glimepiride (Amaryl) 2 mg BID ORAL 08/23/17 18:00 09/22/17 17:59 08/23/17 17:26 Hydromorphone HCl (Dilaudid) 1 mg Q3H PRN IVP pain score 4-6 08/23/17 12:30 08/30/17 12:29 08/23/17 17:49 Insulin Aspart (NovoLOG) BEFORE MEALS AND HS SUBQ 08/23/17 17:30 09/22/17 17:29 08/23/17 17:38 Ketorolac Tromethamine (Toradol 30mg) 15 mg Q6H PRN IV Breakthrough Pain 08/23/17 12:30 08/28/17 12:29 Morphine Sulfate (Morphine Sulfate) 2 mg Q4H PRN IVP Severe Pain 08/23/17 16:15 08/30/17 16:14 Nebivolol (Bystolic) 5 mg DAILY ORAL 08/24/17 09:00 09/23/17 08:59 Nitroglycerin (Ntg) 0.4 mg Every 5 Minutes PRN SL Prn Chest Pain 08/23/17 16:15 09/22/17 16:14 Ondansetron HCl (Zofran) 4 mg Q6H PRN IVP Nausea & Vomiting 08/23/17 16:15 09/22/17 16:14 Polyethylene Glycol (Miralax) 17 gm DAILYPRN PRN ORAL Constipation 08/23/17 16:15 09/22/17 16:14 Temazepam (Restoril) 7.5 mg DAILYPRN PRN ORAL Insomnia 08/23/17 12:30 08/30/17 12:29 Vancomycin HCl 1 gm/Dextrose 275 ml @ 183.3 mls/ hr Q24H IV 08/24/17 00:30 08/29/17 00:29 UNV Vancomycin HCl/ Dextrose 250 ml @ 166.667 mls/hr ONCE IVPB 08/23/17 21:00 08/28/17 20:59 Assessment/Plan Assessment/Plan Abx: IV Vanco and Gentamycin x1 08/23 (eddi=op) IV Vancomycin/Ceftriaxone 08/23- Assesment: Infected penile prosthesis s/p removal 08/23 -OR cx not sent Afebrile, no leukocytosis TONI, improving DM2 HTN HLD Prior penile prosthesis infections Plan: -Continue IV Vancomycin and Ceftriaxone; ok to discharge on this regimen for total of 2 weeks (had already arrange home health IV abx prior to admission) -weekly CBC/CMP/vanco through while on abx -f/u Bcx -f/u with Dr Haas. -monitor CCBC/BMP, temperatures Thank you for this consultation. WIll continue to follow along with you. Discussed with Conchita Godinez M.D. Aug 23, 2017 18:05
[2017-08-23] MEDS ORDERED: Cefepime HCl 2 GM in D5W 110 ML IV SCH (21:00)
[2017-08-23] MEDS ORDERED: Vancomycin 1250mg/D5W 250ml 250 ML IVPB SCH (21:00)
[2017-08-23] MEDS ORDERED: Gentamicin inj 400 MG in NS 110 ML IVPB ONE (21:00)
[2017-08-24] MEDS ORDERED: Vancomycin 1 GM in D5W 275 ML IV SCH (00:30)
[2017-08-24 00:38] VITALS: BP 134/81
[2017-08-24 04:00] VITALS: BP 138/70
[2017-08-24] MEDS: D5 1/2NS 1,000 ML IV SCH ×2 (05:33→14:00)
[2017-08-24] MEDS: NovoLOG Insulin Flexpen SUBQ SCH ×2 (05:38→11:36)
[2017-08-24 07:20] LABS: BASOPHILS % (AUTO) 1.2 % (0.0-2.0); LYMPHOCYTES % (AUTO) 24.9 % (20.0-45.0); MEAN CORPUSCULAR HEMOGLOBIN 27.7 PG (27.0-31.0); MEAN CORPUSCULAR HGB CONC 29.9 G/DL (32.0-36.0); MEAN CORPUSCULAR VOLUME 92 FL (80-99); MEAN PLATELET VOLUME 5.9 FL (6.5-10.1); MONOCYTES % (AUTO) 5.8 % (1.0-10.0); NEUTROPHILS % (AUTO) 67.1 % (45.0-75.0); PLATELET COUNT 294 K/UL (150-450); RED BLOOD COUNT 5.12 M/UL (4.70-6.10); RED CELL DISTRIBUTION WIDTH 10.8 % (11.6-14.8); WHITE BLOOD COUNT 9.7 K/UL (4.8-10.8)
[2017-08-24 07:58] LABS: ALANINE AMINOTRANSFERASE 10 U/L (3-41); ALBUMIN/GLOBULIN RATIO 1.1 (1.0-2.7); ANION GAP 11 (5-15); ASPARTATE AMINO TRANSFERASE 12 U/L (5-40); CALCIUM 9.4 mg/dL (8.6-10.2); CARBON DIOXIDE 27 mEQ/L (20-30); CHLORIDE 99 mEQ/L (98-107); CREATININE 1.2 mg/dL (0.7-1.2); GLOMERULAR FILTRATION RATE > 60 mL/min (>60); HEMOLYSIS 4; POTASSIUM 4.6 mEQ/L (3.4-4.9); SODIUM 137 mEQ/L (135-145); TOTAL PROTEIN 6.7 g/dL (6.6-8.7)
[2017-08-24 08:10] VITALS: BP 139/95
[2017-08-24] MEDS ORDERED: Bystolic 2.5mg Tab ORAL SCH (09:00)
[2017-08-24] MEDS ORDERED: ARIPiprazole 10mg tab ORAL SCH (09:00)
[2017-08-24] MEDS ORDERED: BuPROPion XL 150mg tab ORAL SCH (09:00)
[2017-08-24] MEDS ORDERED: cefTRIAXone 1 GM in D5W 55 ML IVPB SCH (09:00)
[2017-08-24] MEDS: Docusate 100mg cap ORAL SCH (09:29)
[2017-08-24] MEDS: Glimepiride 1mg tab ORAL SCH (09:29)
[2017-08-24] MEDS: Hydromorphone 0.5mg/0.5ml inj IVP PRN (09:30)
[2017-08-24] MEDS ORDERED: Vancomycin 1gm/D5W 275ml IVPB SCH ×2 (11:00)
[2017-08-24 12:02] VITALS: BP 127/91
[2017-08-24] MEDS ORDERED: VANCOMYCIN1 GM IVPB (15:05)
[2017-08-24] MEDS ORDERED: ROCEPHIN250 MG IM (15:07)
[2017-08-24] MEDS ORDERED: CEFTRIAXONE1 G2 IVPB (15:07)
--- NOTE | 2017-08-24 15:42 | Pulmonology Progress Note ---
Assessment/Plan Problems: (1) Infection of prosthesis Assessment/Plan iv abx check cultures wound care dc home with IV abx Subjective ROS Limited/Unobtainable: No Constitutional: Reports: no symptoms HEENT: Repors: no symptoms Gastrointestinal/Abdominal: Reports: no symptoms Allergies: Coded Allergies: No Known Allergies (Unverified , 08/02/17) Objective Last 24 Hour Vital Signs Date Time Temp Pulse Resp B/P (MAP) Pulse Ox O2 Delivery O2 Flow Rate FiO2 08/24/17 12:02 97.9 98 20 127/91 96 Room Air 08/24/17 08:10 99.0 93 20 139/95 97 Room Air 08/24/17 07:16 98 19 99 08/24/17 06:49 Nasal Cannula 3.0 08/24/17 06:49 98 20 Nasal Cannula 3.0 08/24/17 06:49 99 Nasal Cannula 3.0 08/24/17 04:00 97.4 88 18 138/70 99 Nasal Cannula 2.0 08/24/17 00:38 97.5 94 19 134/81 97 Nasal Cannula 2.0 08/23/17 20:00 97.5 92 18 133/91 98 Nasal Cannula 2.0 08/23/17 19:57 91 20 Nasal Cannula 3.0 32 08/23/17 19:57 97 Nasal Cannula 3.0 32 08/23/17 19:57 Nasal Cannula 3.0 32 08/23/17 16:15 97.4 93 21 123/82 97 Nasal Cannula 3.0 08/23/17 15:45 97.4 80 20 101/60 97 Nasal Cannula 3.0 Intake and Output 08/24/17 08/25/17 19:00 07:00 Intake Total 538.708 ml Output Total 1200 ml Balance -661.292 ml IV Total 538.708 ml Output Urine Total 1200 ml # Voids 2 # Bowel Movements 3 General Appearance: WD/WN HEENT: normocephalic, atraumatic Respiratory/Chest: chest wall non-tender, lungs clear Cardiovascular: normal peripheral pulses, normal rate Abdomen: normal bowel sounds, soft, non tender Genitourinary: normal external genitalia Extremities: no clubbing Skin: no rash Laboratory Tests 08/24/17 05:30: White Blood Count 9.7, Red Blood Count 5.12, Hemoglobin 14.2, Hematocrit 47.4, Mean Corpuscular Volume 92, Mean Corpuscular Hemoglobin 27.7, Mean Corpuscular Hemoglobin Concent 29.9L, Red Cell Distribution Width 10.8L, Platelet Count 294 , Mean Platelet Volume 5.9L, Neutrophils (%) (Auto) 67.1, Lymphocytes (%) (Auto ) 24.9, Monocytes (%) (Auto) 5.8, Eosinophils (%) (Auto) 1.0, Basophils (%) ( Auto) 1.2, Sodium Level 137, Potassium Level 4.6, Chloride Level 99, Carbon Dioxide Level 27, Anion Gap 11, Blood Urea Nitrogen 24H, Creatinine 1.2, Estimat Glomerular Filtration Rate > 60, Glucose Level 149H, Calcium Level 9.4, Total Bilirubin 0.2, Aspartate Amino Transf (AST/SGOT) 12, Alanine Aminotransferase (ALT/SGPT) 10, Alkaline Phosphatase 105, Total Protein 6.7, Albumin 3.6, Globulin 3.1, Albumin/Globulin Ratio 1.1 Current Medications Medications (Trade) Dose Ordered Sig/Keegan Route PRN Reason Start Time Stop Time Status Last Admin Dose Admin Acetaminophen (Tylenol) 650 mg Q4H PRN ORAL FEVER 08/23/17 12:30 09/22/17 12:29 Acetaminophen (Tylenol) 650 mg Q6H PRN ORAL Mild Pain (Pain Scale 1-3) 08/23/17 12:30 09/22/17 12:29 Acetaminophen/ Hydrocodone Bitart ([place] 5/325) 1 tab Q4H PRN ORAL Moderate Pain (Pain Scale 4-6) 08/23/17 12:30 08/30/17 12:29 Albuterol/ Ipratropium (DuoNeb 0.5-3(2.5)mg/3ml) 3 ml Q4H PRN HHN Shortness of Breath 08/23/17 16:15 08/28/17 16:14 Aripiprazole (Abilify) 10 mg DAILY ORAL 08/24/17 09:00 09/23/17 08:59 08/24/17 09:29 Bupropion HCl (Wellbutrin XL) 150 mg DAILY ORAL 08/24/17 09:00 09/23/17 08:59 08/24/17 09:29 Ceftriaxone Sodium 1 gm/ Dextrose 55 ml @ 110 mls/hr Q24H IVPB 08/24/17 09:00 08/31/17 08:59 08/24/17 09:29 Dextrose (Dextrose 50%) STAT PRN IV Hypoglycemia 08/23/17 16:15 09/22/17 16:14 Dextrose/Sodium Chloride 1,000 ml @ 100 mls/hr Q10H IV 08/23/17 18:00 09/22/17 17:59 08/24/17 05:33 Docusate Sodium (Colace) 100 mg TWICE A DAY ORAL 08/23/17 18:00 09/22/17 17:59 08/24/17 09:29 Glimepiride (Amaryl) 2 mg BID ORAL 08/23/17 18:00 09/22/17 17:59 08/24/17 09:29 Hydromorphone HCl (Dilaudid) 1 mg Q3H PRN IVP pain score 4-6 08/23/17 12:30 08/30/17 12:29 08/24/17 09:30 Insulin Aspart (NovoLOG) BEFORE MEALS AND HS SUBQ 08/23/17 17:30 09/22/17 17:29 08/24/17 11:36 Ketorolac Tromethamine (Toradol 30mg) 15 mg Q6H PRN IV Breakthrough Pain 08/23/17 12:30 08/28/17 12:29 Morphine Sulfate (Morphine Sulfate) 2 mg Q4H PRN IVP Severe Pain 08/23/17 16:15 08/30/17 16:14 Nebivolol (Bystolic) 5 mg DAILY ORAL 08/24/17 09:00 09/23/17 08:59 08/24/17 09:29 Nitroglycerin (Ntg) 0.4 mg Every 5 Minutes PRN SL Prn Chest Pain 08/23/17 16:15 09/22/17 16:14 Ondansetron HCl (Zofran) 4 mg Q6H PRN IVP Nausea & Vomiting 08/23/17 16:15 09/22/17 16:14 Polyethylene Glycol (Miralax) 17 gm DAILYPRN PRN ORAL Constipation 08/23/17 16:15 09/22/17 16:14 Temazepam (Restoril) 7.5 mg DAILYPRN PRN ORAL Insomnia 08/23/17 12:30 08/30/17 12:29 Vancomycin HCl (Vanco rx to dose) 1 ea DAILY PRN MISC Per rx protocol 08/23/17 21:45 09/22/17 21:44 Vancomycin HCl 1 gm/Dextrose 275 ml @ 183.708 mls/hr Q12H IVPB 08/24/17 11:00 08/29/17 10:59 08/24/17 11:34 DRE JAMESON Aug 24, 2017 15:42
[2017-08-24] MEDS ORDERED: Tubing IV Secondary IV ONE (15:44)
[2017-08-24] MEDS ORDERED: D5 1/2NS 1000ml IV ONE (15:44)
--- NOTE | 2017-08-25 09:54 | Discharge Summary ---
Discharge Summary Hospital Course Date of Admission Aug 23, 2017 at 11:05 Date of Discharge Aug 24, 2017 at 15:45 Admitting Diagnosis HPI Bin Haynes is a 51 year old male who was admitted on Aug 23, 2017 at 11:05 for Infected Penile Prosthesis Hospital Course [id number] Discharge Discharge Disposition Patient was discharged to Home with Home Health(06) Discharge Diagnoses: Sierra Lui NP Aug 25, 2017 09:54
--- NOTE | 2017-08-25 11:06 | Diagnostic Imaging Report ---
APPROVED REPORT CPT Code: 67478 Present Symptoms Shortness of breath BILATERAL: Imaging reveals a patent deep venous system bilaterally. There is no evidence of thrombus within the femoral, popliteal or tibial segments. The greater saphenous veins are also within normal limits. Doppler indicates normal spontaneous flow within these segments.
--- NOTE | 2017-08-25 16:31 | Discharge Summary 2 SIG ---
DATE OF ADMISSION: 08/23/2017 DATE OF DISCHARGE: 08/24/2017 ATTENDING PHYSICIAN: Javed Haas M.D. CONSULTANTS: 1. Federica Irving M.D. 2. Dr. Josefina Rubin Brief Hospital Course: The patient is a 51-year-old male with history of hypertension, pancreatitis, diabetes, and a prior infected penile prosthesis x2, was admitted to the hospital for removal of prosthesis. The patient had a new prosthesis placed two to three weeks ago and noticed shortly thereafter, there was pain, redness, and swelling. He was placed on IV vancomycin and gentamicin for a week without any significant improvement. He was then admitted on 08/23/2017 and underwent removal of implanted penile prosthesis by Dr. Haas. He was seen by Infectious Disease specialist and was continued on IV vancomycin and ceftriaxone. Recommend to continue treatment for total of two weeks. He was eventually discharged home with home health to continue IV antibiotics. FINAL DIAGNOSES: 1. Infected implanted penile prosthesis, status post removal. 2. Acute kidney injury. 3. Diabetes mellitus. 4. Hypertension. 5. Hyperlipidemia. DISPOSITION: The patient was discharged home with home health. DISCHARGE MEDICATIONS: Refer to medication list. Followup: The patient to follow up with Dr. Haas. The patient was discharged home with Guadarrama catheter. Advised to apply a scrotal support. Federica Irving M.D. I have been assigned to dictate discharge summary on this account and I was not involved in the patient's management. Sierra Lui N.P. DR: SCOTT JOB#: [id number] CC: MALAIKA
--- NOTE | 2017-08-29 06:45 | Operative Note - Dictated ---
DATE OF OPERATION: 08/23/2017 PREOPERATIVE DIAGNOSIS: Infected penile prosthesis. POSTOPERATIVE DIAGNOSIS: Infected penile prosthesis. OPERATION: Removal of semi-rigid penile prosthesis, scrotal ____ and drain placement, and Guadarrama catheter placement. SURGEON: Javed Haas M.D. ANESTHESIA: General. FINDINGS: Infected penile prosthesis with fluid collection in the left hemiscrotum. INDICATIONS FOR SURGERY: The patient had a third prosthesis placed despite all the attempts to prevent infection. Recent prosthesis was okay for two weeks. After that, the patient developed progressive swelling in the scrotum with pain and discomfort and some discharge coming from the wound. Treatment was discussed with the patient and decision was made to remove the infected penile prosthesis. All potential complications were explained. He signed the consent. The patient was brought to the operating room, placed in the supine position, and prepped and draped in standard fashion under general anesthesia. A penoscrotal incision was made and both corpora were exposed and opened and both prostheses were removed from the corpora cavernosa and sent for pathologic examination. There was some fluid collection in the area of previous pump, which was drained and [place] drain was placed through the left hemiscrotum to drain. The wound was copiously irrigated with antibiotic and closed in 3 layers and the skin was closed with nylon. The drain was secured, dressing. Sponge count and instrument count was correct. No other complications. Javed Haas M.D. DR: BRANDI JOB#: [id number] CC:
== END 2017-08-24 15:45 | disposition home or self-care (01) | DRG 674 ==
LOC: SDSOVERFLO 11:05 → 3E 15:01
PROC: 0VPS0JZ Removal of Synthetic Substitute from Penis, Open Approach (ICD-10-PCS; principal; 2017-08-23 12:30)
DX: T83.61XA Infection and inflammatory reaction due to implanted penile prosthesis, initial encounter (principal); F31.81 Bipolar II disorder; N17.9 Acute kidney failure, unspecified; K86.1 Other chronic pancreatitis; I10 Essential (primary) hypertension; E11.9 Type 2 diabetes mellitus without complications; E78.5 Hyperlipidemia, unspecified; G47.33 Obstructive sleep apnea (adult) (pediatric); F17.200 Nicotine dependence, unspecified, uncomplicated; G89.4 Chronic pain syndrome; Z88.2 Allergy status to sulfonamides; Y83.8 Other surgical procedures as the cause of abnormal reaction of the patient, or of later complication, without mention of misadventure at the time of the procedure
CPT/HCPCS: 36415; 80048; 80053; 82962; 85025; 87040; 87081; 93970; 94003; 94150; 94664; 94760; A4246; J1580; J1815; J2250

== ENCOUNTER 2019-04-24 09:17 | Day surgery (SDC) | payer MEDICARE, OTHER ==
[2019-04-24] VITALS (11 sets, daily range): BP systolic 111–124; BP diastolic 64–89
[~2019-04-24] VITALS: Ht 172.7 cm; Wt 78.5 kg
[~2019-04-24 09:17] MED LIST changes: +CEFTRIAXONE1 G2 IVPB; +JARDIANCE PO; +LANTUS SOL100 UNIT/1 SUBQ; +NOVOLOG100 UNIT/4 SQ; +ROCEPHIN250 MG IM; +VANCOMYCIN1 GM IVPB; +ZOLOFT25 MG ORAL; +ceFAZolin sod 1 GM in NS 55 ML IVPB ONE
--- NOTE | 2019-04-24 09:58 | Pre-Procedure Note/Attestation ---
Pre-Procedure Note/Attestation Complete Prior to Procedure Planned Procedure: not applicable Procedure Narrative: IPP Indications for Procedure Pre-Operative Diagnosis: impotence Attestation I attest that I discussed the nature of the procedure; its benefits; risks and complications; and alternatives (and the risks and benefits of such alternatives ), prior to the procedure, with the patient (or the patient's legal technical sales representatives). I attest that, if there was a reasonable possibility of needing a blood transfusion, the patient (or the patient's legal technical sales representatives) was given the [facility] standardized written summary, pursuant to the [employer] Blood Safety Act ([place] Health and Safety Code # 1645, as amended). I attest that I re-evaluated the patient just prior to the surgery and that there has been no change in the patient's H&P, except as documented below: Javed Haas MD Apr 24, 2019 09:58
[2019-04-24 10:04] LABS: BASOPHILS % (AUTO) 0.8 % (0.0-2.0); EOSINOPHILS % (AUTO) 1.8 % (0.0-3.0); HEMATOCRIT 43.4 % (42.0-52.0); LYMPHOCYTES % (AUTO) 24.7 % (20.0-45.0); MEAN CORPUSCULAR VOLUME 85 FL (80-99); MONOCYTES % (AUTO) 5.4 % (1.0-10.0); NEUTROPHILS % (AUTO) 67.3 % (45.0-75.0); PLATELET COUNT 467 K/UL (150-450); RED CELL DISTRIBUTION WIDTH 11.6 % (11.6-14.8); WHITE BLOOD COUNT 12.4 K/UL (4.8-10.8)
[2019-04-24] MEDS ORDERED: Bacitracin Oint 15gm Tube TOPIC ONE (10:18)
[2019-04-24] MEDS ORDERED: Bacitracin 50000 Units Vial ONE (10:19)
[2019-04-24] MEDS ORDERED: NeoSporin Gu Irrig 1ml Amp IRRIG ONE (10:19)
[2019-04-24 10:28] LABS: ANION GAP 9 mmol/L (5-15); BLOOD UREA NITROGEN 21 mg/dL (7-18); CALCIUM 9.5 MG/DL (8.5-10.1); CARBON DIOXIDE 25 MMOL/L (21-32); CHLORIDE 105 MMOL/L (98-107); CREATININE 1.2 MG/DL (0.55-1.30); POTASSIUM 4.8 MMOL/L (3.5-5.1); SODIUM 139 MMOL/L (136-145)
[2019-04-24] MEDS ORDERED: LR 1000ml 1,000 ML IVLG SCH (10:35)
--- NOTE | 2019-04-24 10:39 | Anethesia Preoperative Eval ---
Anesthesia Pre-op PMH/ROS General Date of Evaluation: Apr 24, 2019 Time of Evaluation: 11:46 Anesthesiologist: Blair ASA Score: ASA 3 Mallampati Score Class I : Soft palate, uvula, fauces, pillars visible Class II: Soft palate, uvula, fauces visible Class III: Soft palate, base of uvula visible Class IV: Only hard plate visible Mallampati Classification: Class II Surgeon: Waldo Diagnosis: Impotent Surgical Procedure: Penile Implant Anesthesia History: none Family History: no anesthesia problems Allergies: Coded Allergies: No Known Allergies (Unverified , 04/23/19) Medications: see eMAR Patient NPO?: Yes Past Medical History Cardiovascular: Reports: HTN, other - HL Gastrointestinal/Genitourinary: Reports: GERD, other - Pancreatitis, Impotent Neurologic/Psychiatric: Reports: CVA, other - Bipolar Endocrine: Reports: DM Anesthesia Pre-op Phys. Exam Physician Exam Last Vital Signs Date Time Temp Pulse Resp B/P (MAP) Pulse Ox O2 Delivery O2 Flow Rate FiO2 04/24/19 09:58 Room Air 04/24/19 09:57 97.9 96 18 124/89 97 Constitutional: NAD Neurologic: CN 2-12 intact Cardiovascular: RRR Respiratory: CTA Gastrointestinal: S/NT/ND Airway Exam Mallampati Score: Class II MO: limited ROM: limited Teeth: missing, intact Anesthesia Pre-op A/P Labs Hematology Test 04/24/19 09:40 White Blood Count 12.4 K/UL (4.8-10.8) H Red Blood Count 5.10 M/UL (4.70-6.10) Hemoglobin 14.0 G/DL (14.2-18.0) L Hematocrit 43.4 % (42.0-52.0) Mean Corpuscular Volume 85 FL (80-99) Mean Corpuscular Hemoglobin 27.4 PG (27.0-31.0) Mean Corpuscular Hemoglobin Concent 32.1 G/DL (32.0-36.0) Red Cell Distribution Width 11.6 % (11.6-14.8) Platelet Count 467 K/UL (150-450) H Mean Platelet Volume 6.0 FL (6.5-10.1) L Neutrophils (%) (Auto) 67.3 % (45.0-75.0) Lymphocytes (%) (Auto) 24.7 % (20.0-45.0) Monocytes (%) (Auto) 5.4 % (1.0-10.0) Eosinophils (%) (Auto) 1.8 % (0.0-3.0) Basophils (%) (Auto) 0.8 % (0.0-2.0) Coagulation Test 04/24/19 09:40 Prothrombin Time 10.5 SEC (9.30-11.50) Prothromb Time International Ratio 1.0 (0.9-1.1) Activated Partial Thromboplast Time 36 SEC (23-33) H Chemistry Test 04/24/19 09:40 Sodium Level 139 MMOL/L (136-145) Potassium Level 4.8 MMOL/L (3.5-5.1) Chloride Level 105 MMOL/L (98-107) Carbon Dioxide Level 25 MMOL/L (21-32) Anion Gap 9 mmol/L (5-15) Blood Urea Nitrogen 21 mg/dL (7-18) H Creatinine 1.2 MG/DL (0.55-1.30) Estimat Glomerular Filtration Rate > 60 mL/min (>60) Glucose Level 84 MG/DL (74-106) Calcium Level 9.5 MG/DL (8.5-10.1) Risk Assessment & Plan Assessment: ASA 3 Plan: GA, SED, Glidescope Go Status Change Before Surgery: No Pre-Antibiotics Dru mg Vancomycin, 80 mg Gentimicin IV Given Within 1 Hr of Incision: Yes Time Given: 11:56 Doyle Pinto MD Apr 24, 2019 10:39
[2019-04-24] MEDS ORDERED: Lidocaine 1% MPF 10mg/ml 5ml ONE (10:45)
[2019-04-24] MEDS ORDERED: oxyCODONE HCL/Acetaminophen 5/325mg ORAL PRN (10:45)
[2019-04-24] MEDS ORDERED: DiphenhydrAMINE 50mg/ml Inj IVP PRN (10:45)
[2019-04-24] MEDS ORDERED: Atropine Sulfate 0.4mg/ml inj IVP PRN (10:45)
[2019-04-24] MEDS ORDERED: Hydromorphone 0.5mg/0.5ml inj IVP PRN (10:45)
[2019-04-24] MEDS ORDERED: HYDROcodone/Acetamin 7.5/325 tab ORAL PRN (10:45)
[2019-04-24] MEDS ORDERED: LORazepam Inj 2mg/ml 1ml IV PRN (10:45)
[2019-04-24] MEDS ORDERED: fentaNYL 100 mcg/2 mL IV PRN (10:45)
[2019-04-24] MEDS ORDERED: Meperidine 50mg/ml Inj(FOR RIGORS ONLY) IVP PRN (10:45)
[2019-04-24] MEDS ORDERED: Labetalol 5mg/ml 20ml vial IV PRN (10:45)
[2019-04-24] MEDS ORDERED: Metoclopramide 10mg/2ml Inj IVP PRN (10:45)
[2019-04-24] MEDS ORDERED: Midazolam 2mg/2ml Inj IVP PRN (10:45)
[2019-04-24] MEDS ORDERED: Ketorolac 30mg Inj IV PRN ×2 (10:45)
[2019-04-24] MEDS ORDERED: HYDROcodone/Acetamin 5/325 tab ORAL PRN ×2 (10:45→20:01)
--- NOTE | 2019-04-24 11:05 | Immediate Post-Op Evaluation ---
Immediate Post-Op Evalulation Immediate Post-Op Evalulation Procedure: Penile Implant Date of Evaluation: Apr 24, 2019 Time of Evaluation: 13:53 IV Fluids: 1000 LR Blood Products: 0 Estimated Blood Loss: 25 Urinary Output: 0 Blood Pressure Systolic: 119 Blood Pressure Diastolic: 82 Pulse Rate: 90 Respiratory Rate: 16 O2 Sat by Pulse Oximetry: 100 Temperature (Fahrenheit): 97.3 Pain Score (1-10): 2 Nausea: No Vomiting: No Complications 0 Patient Status: awake, reacts, patent, extubated, none Hydration Status: adequate Dru mg Vancomycin, 80 mg Gentimicin IV Given Within 1 Hr of Incision: Yes Time Given: 11:56 Doyle Pinto MD Apr 24, 2019 11:05
--- NOTE | 2019-04-24 11:06 | 48 Hour Post Anesthesia Eval ---
Post Anesthesia Evaluation Procedure: Penile Implant Date of Evaluation: Apr 24, 2019 Time of Evaluation: 16:21 Blood Pressure Systolic: 117 0: 79 Pulse Rate: 83 Respiratory Rate: 18 Temperature (Fahrenheit): 98.2 O2 Sat by Pulse Oximetry: 99 Airway: patent Nausea: No Vomiting: No Pain Intensity: 2 Hydration Status: adequate Cardiopulmonary Status: Stable Mental Status/LOC: patient returned to baseline Follow-up Care/Observations: 0 Post-Anesthesia Complications: 0 Follow-up care needed: ready to discharge Doyle Pinto MD Apr 24, 2019 11:06
[2019-04-24] MEDS ORDERED: NS Irrig 1000ml IRRIG ONE ×2 (11:39→12:11)
[2019-04-24] MEDS ORDERED: Sterile Water Irrig 1000ml IRRIG ONE (11:45)
[2019-04-24] MEDS ORDERED: NS Irrig 1000ml ONE (12:00)
[2019-04-24] MEDS ORDERED: Zemuron 50mg/5ml Inj IV ONE (12:00)
[2019-04-24] MEDS ORDERED: LR 1000ml ONE (12:00)
[2019-04-24] MEDS ORDERED: Propofol 200mg/20ml IV ONE (12:00)
[2019-04-24] MEDS ORDERED: Acetaminophen (Non formulary) 100 ML IV ONE (12:45)
[2019-04-24] MEDS ORDERED: fentaNYL 100 mcg/2 mL IV ONE (13:14)
[2019-04-24] MEDS ORDERED: Ketamine 500mg Inj ONE (13:16)
[2019-04-24] MEDS ORDERED: Ketorolac 30mg Inj ONE (13:32)
--- NOTE | 2019-04-24 13:56 | Brief Operative Note ---
Immediate Post Operative Note Operative Note Pre-op Diagnosis: impotence Procedure: revision and implantation of IPP Post-op Diagnosis: same Post-op Diagnosis: same as pre-op Surgeon: Maximino Haas Anesthesia: general Specimen: none Complications: none Condition: stable Fluids: 500 Estimated Blood Loss: minimal Implant(s) used?: Yes Javed Haas MD Apr 24, 2019 13:55
[2019-04-24] MEDS ORDERED: Tylenol #3 tab (300mg/30mg) ORAL PRN (16:01)
[2019-04-24] MEDS ORDERED: D5 1/2NS 1,000 ML IV SCH (16:01)
[2019-04-24] MEDS ORDERED: HYDROmorphone 1mg/ml Carpuject SUBQ PRN (16:01)
--- NOTE | 2019-04-26 09:00 | Operative Note - Dictated ---
DATE OF OPERATION: 04/25/2019 PREOPERATIVE DIAGNOSES: 1. Organic impotence. 2. 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 POSTOPERATIVE DIAGNOSES: 1. Organic impotence. 2. 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 OPERATION: Revision of previously placed penile prosthesis with corporal dissection, corporal release, lysis of adhesions, redilation of corporal tissues and placement of three-piece penile prosthesis. OPERATED BY: Javed Haas M.D. ANESTHESIA: General. FINDINGS: Severe obstruction of corpora with remnants of penile prosthesis. INDICATIONS FOR SURGERY: The patient had penile prosthesis placed three times. First was dilated for two years and then it got infected and the prosthesis was removed followed by placement of another penile prosthesis which eventually failed due to infection and removed followed by semi-rigid prosthesis that got infected and removed and this is the third attempt we placed a penile prosthesis. The patient understands the nature of the surgery and complicated nature of the procedure and the risks of failure. I also advised him that I had a high suspicion that this prosthesis also may get infected and we may not be able even to place the prosthesis he understands and he signed the consent. PROCEDURE IN DETAIL: He was brought to the operating room, placed in supine position, and prepped draped in standard fashion. Under general anesthesia, a penoscrotal incision was made, and old adhesions were dissected free mobilizing way to the corpora. Urethra was protected by 16-Syrian Guadarrama catheter. Corpora cavernosa was opened inside the corpora using sharp dissection with Metzenbaum scissors. We made our way proximally and distally to establish some form of a channel within the corporal tissue. After that with gentle dilation, this corpora cavernosa was dilated to 11-Syrian. Using special three-piece AMS prosthesis, bladder was placed inside the corpora 15 cm in length. The corpora was then closed with a running 3-0 Vicryl sutures. Prosthesis was tested and functioning. [place] was placed in the retroperitoneal space and filled with 60 mL of normal saline. Pump was placed in the subdartos position. All the components were connected together and closed with 3 layers of closure and subcuticular closure for the skin. The patient tolerated the procedure well. No evidence of complications. Javed Haas M.D. DR: Slime JOB#: [id number] CC:
== END 2019-04-24 15:55 | disposition home or self-care (01) ==
LOC: SUR 09:17
DX: N52.9 Male erectile dysfunction, unspecified (principal); I10 Essential (primary) hypertension; E11.9 Type 2 diabetes mellitus without complications; Z86.73 Personal history of transient ischemic attack (TIA), and cerebral infarction without residual deficits; K21.9 Gastro-esophageal reflux disease without esophagitis; F31.9 Bipolar disorder, unspecified
CPT/HCPCS: 36415; 54410; 80048; 82962; 85025; 85610; 85730; C1813; J0690; J1885; J2250; J2405; J2704; J3010; J3370; J3490; 94003; 94150